=== PATIENT | female | born 1975 ===

== ENCOUNTER 2023-12-26 05:40 | Day surgery (SDC) | payer OTHER ==
[2023-12-19 08:23] LABS: PH,URINE 7.5 (5.0-8.0); URINE APPEARANCE Clear; URINE BILIRRUBIN Negative (NEGATIVE); URINE BLOOD Negative; URINE COLOR Yellow; URINE GLUCOSE Negative (NEGATIVE); URINE LEUKOCYTE Large; URINE NITRATE Negative; URINE PROTEIN Negative (NEGATIVE); URINE UROBILINOGEN 0.2 E.U./dl
[2023-12-19 08:27] LABS: URINE EPITHELIAL CELLS 80.5 uL (0.0-38.8); URINE RBC 10.2 uL (0.0-20.8); URINE WBC 73.2 uL (0.0-23.2)
[2023-12-19 08:28] LABS: HEMATOCRIT 35.8 % (36.0-45.00); HEMOGLOBIN 11.7 g/dL (12.0-15.00); MEAN CELL VOLUME 80.5 fL (80.00-100.00); MEAN CORPUSCULAR HEMOGLOBIN 26.4 pg (27.00-32.0); MEAN CORPUSCULAR HGB CONC 32.8 g/dl (32.0-36.0); PLATELET COUNT 274 K/uL (150-450); RED BLOOD COUNT 4.45 M/uL (4.00-6.00)
[2023-12-19 08:59] LABS: INR < 0.93; PARTIAL THROMBOPLASTIN TIME 27.6 SECONDS (22.0-34.0); PROTHROMBIN TIME 9.8 SECONDS (9.0-11.5)
[2023-12-19 09:35] LABS: ALBUMIN 3.5 gm/dL (3.4-5.0); BILIRUBIN TOTAL 0.3 mg/dL (0.3-1.2); CALCIUM 9.5 mg/dL (8.5-10.1); CREATININE SERUM 0.85 mg/dL (0.55-1.02); GFR 70.79; POTASSIUM 4.97 mEq/L (3.5-5.1); TOTAL PROTEIN 7.5 gm/dL (6.4-8.2); TSH 1.45 uIU/mL (0.358-3.74)
[~2023-12-26] VITALS: Ht 152.4 cm; Wt 81.6 kg
[~2023-12-26 05:40] MED LIST: INTEGRA CAPSUL1 EACH PO
[2023-12-26] MEDS ORDERED: CEFOXITIN SODIUM 2,000 MG VIAL IV ONE ×2 (07:18→07:44)
[2023-12-26] MEDS ORDERED: POVIDONE-IODINE 118 ML BOTT TOP ONE (07:20)
[2023-12-26] MEDS ORDERED: NAPR500T14 PO (08:13)
[2023-12-26] MEDS ORDERED: MORGIDOX100 MG PO (08:13)
[2023-12-26] MEDS ORDERED: MORPHINE SULFATE 4 MG/ML VIAL IV PRN (08:15)
[2023-12-26] MEDS ORDERED: PROMETHAZINE HCL 50 MG/ML AMPUL IM ONE (08:15)
== END 2023-12-26 12:40 | disposition home or self-care (01) ==
LOC: CIR.AMB 05:40
PROVIDERS: ATTEND Obstetrics & Gynecology
DX: N84.0 Polyp of corpus uteri (principal); D25.0 Submucous leiomyoma of uterus; N89.0 Mild vaginal dysplasia; N92.5 Other specified irregular menstruation; Z88.6 Allergy status to analgesic agent